=== PATIENT | male | born 1970 | race Caucasian/White ===

== ENCOUNTER → 2017-03-28 | Outpatient (CLI) | payer OTHER ==
[~2017-03-28] VITALS: Ht 180.3 cm; Wt 109.3 kg
[~2017-03-28] MED LIST: CALCIUM + D3 E1 EACH PO; LIBRIUM25 MG PO; LUNESTA3 MG PO; MULTIPLE VITAM1 EACH PO; PRILOSEC20 MG PO
== END | disposition home or self-care (01) ==
LOC: AMB 12:00
DX: Z12.11 Encounter for screening for malignant neoplasm of colon (principal); Z86.010 Personal history of colon polyps; Z80.0 Family history of malignant neoplasm of digestive organs; K22.70 Barrett's esophagus without dysplasia; Z82.49 Family history of ischemic heart disease and other diseases of the circulatory system; Z88.0 Allergy status to penicillin; Z88.8 Allergy status to other drugs, medicaments and biological substances; K44.9 Diaphragmatic hernia without obstruction or gangrene; Z98.84 Bariatric surgery status
CPT/HCPCS: 88305; J2250; J3010